=== PATIENT | female | born 1940 | race Caucasian/White ===

== ENCOUNTER 2017-08-02 06:03 | Day surgery (SDC) | payer OTHER ==
--- NOTE | 2017-07-26 11:34 | RAD REPORT ---
EXAM DESCRIPTION: RAD - Chest Pa And Lat (2 Views) - 07/26/2017 11:15 am CLINICAL HISTORY: Preop chest, pending rotator cuff surgery COMPARISON: None. TECHNIQUE: PA and lateral views of the chest were obtained. FINDINGS: The lungs are fibrotic as a baseline. Diaphragm is flattened. No failure, infiltrate or ma ss. Heart size is normal and central vasculature is within normal limits. No pneumothorax or pleur al effusion. There is scarring changes at the right lung base blunting the costophrenic angle. This i s a stable presentation. Trachea is midline. No acute bony finding noted. No aortic abnormality. IMPRESSION: Fibrotic an obstructive lung changes are present similar to prior imaging. No acute pro cess seen.
[2017-07-26 11:54] LABS: Absolute Lymphocytes (CBC) 1.1 K/uL (0.7-4.9); Absolute Monocytes 0.4 K/uL (0.1-1.3); Hematocrit 37.8 % (36.0-45.0); Lymphocytes % 14.2 % (15.3-44.8); MCH 26.6 pg (27.0-35.0); MPV 7.8 fL (7.6-11.3); Monocytes % 5.8 % (3.3-12.3); RBC Red Blood Cell Count 4.61 M/uL (3.86-4.86)
[2017-07-26 12:09] LABS: Protime INR 0.95
[2017-08-02] MEDS ORDERED: Ringers Lactate 1,000 ML IV ONE ×2 (06:09→08:37)
[2017-08-02] MEDS ORDERED: CEFAZOLIN/SWI 1gm 1 GM/10 ML SYR ONE (06:10)
[2017-08-02] MEDS ORDERED: FENTANYL CITR 100 MCG/2 ML ONE (06:49)
[2017-08-02] MEDS ORDERED: MIDAZOLAM HCL 2 MG/2 ML INJ ONE (06:50)
[2017-08-02] MEDS ORDERED: DEXAMETHASONE 4 MG/ML VIAL ONE (06:50)
[2017-08-02] MEDS ORDERED: ROPLVACAINE HCL 40 ML ONE (06:50)
[2017-08-02] MEDS ORDERED: NA CIT/CITRIC AC 30 ML ORAL UDC ONE (07:01)
[2017-08-02] MEDS ORDERED: EPINEPHRINE/PF 1 MG/ML AMP ONE (07:13)
[2017-08-02] MEDS ORDERED: LIDOCAINE 2% MPF 5 ML VIAL ONE (07:21)
[2017-08-02] MEDS ORDERED: PROPOFOL 200 MG/20 ML VIAL IV ONE (07:21)
[2017-08-02] MEDS ORDERED: ROCURONIUM 50 MG/5 ML VIAL IV ONE (07:21)
[2017-08-02] MEDS ORDERED: LANO/MINERAL OIL/PETRO 3.5 GM ONE (07:33)
[2017-08-02] MEDS ORDERED: EPHEDRINE SULF 50 MG/ML SYR ONE (07:49)
[2017-08-02] MEDS ORDERED: NS 0.9% VIAL 10 ML ONE ×2 (07:51→08:43)
[2017-08-02] MEDS ORDERED: Phenylephrine HCl 10 MG/ML 1 ML VIAL ONE (07:51)
[2017-08-02] MEDS ORDERED: ONDANSETRON HCL 40 MG/20 ML VIAL ONE (07:55)
[2017-08-02] MEDS ORDERED: DEXAMETHASONE 10 MG/ML VIAL ONE (07:55)
[2017-08-02] MEDS ORDERED: KETOROLAC 30 MG/ML INJ ONE (07:55)
[2017-08-02] MEDS ORDERED: GLYCOPYRROLATE 0.2 MG/ML SYR ONE (09:17)
[2017-08-02] MEDS ORDERED: NEOSTIGMINE 1 MG/ML -5 ML SYRINGE ONE (09:18)
--- NOTE | 2017-08-02 09:50 | P.BOP ---
Preoperative diagnosis: right rotator cuff tear, right bicipital tenosynovitis Postoperative diagnosis: same, right shoulder SLAP tear Primary procedure: right shoulder arthroscopic rotator cuff repair Secondary procedure: right shoulder arthroscopic biceps tenotomy with SLAP debridement Other procedure(s): right shoulder arthroscopic subacromial decompression Escort Patients: NONE,NONE Estimated blood loss: <10 cc Specimen: none Findings: see dictation Anesthesia: General Complications: None Implants: 2-4.75 mm Arthrex swivelock, 2- Fibertape Fluids & blood products: per anesthesia record Transferred to: Recovery Room Condition: Good
[2017-08-02] MEDS ORDERED: HYDROCODONE/APAP 7.5/325 MG TAB ONE (12:43)
[2017-08-02 15:17] VITALS: BP 112/51; TEMP 97.8; O2SAT 100
--- NOTE | 2017-08-04 09:26 | OP ---
Date of Procedure: 08/02/2017 Surgeon: Jaison Crawford MD Preoperative Diagnoses: 1. Right shoulder rotator cuff tear. 2. Right shoulder bicipital tenosynovitis. 3. Right shoulder SLAP tear. Postoperative Diagnoses: 1. Right shoulder rotator cuff tear. 2. Right shoulder bicipital tenosynovitis. 3. Right shoulder SLAP tear. 4. Right shoulder impingement syndrome. Procedures Performed: 1. Right shoulder arthroscopic rotator cuff repair. 2. Right shoulder arthroscopic biceps tenotomy with SLAP tear debridement. 3. Right shoulder arthroscopic subacromial decompression. Anesthesia: General endotracheal. Fluids: Per Anesthesia record. Estimated Blood Loss: Less than 10 cc. Implants: Two FiberTapes, two 4.7 mm Arthrex SwiveLock. Complications: None. Indication For Procedure: Ms. Ramires is a 77-year-old female, who presents to my clinic with physical exam and findings history as well as MRI findings consistent with a right shoulder anterior supraspinatus tear, superior subscapularis tear as well as bicipital tenosynovitis, and a subluxated biceps tendon. The patient failed conservative measures including steroid injection. I discussed with the patient at length risks and benefits associated with operative and nonoperative treatment. She expressed understanding and elected to proceed with operative treatment. Description Of Procedure: After informed consent was obtained, the patient was identified in the preop holding area. The right upper extremity was marked. The patient was taken back to the PACU and underwent an interscalene block to the right thigh performed by Anesthesia. She was taken back to the operating room, transferred to the operating table in supine fashion, placed under general endotracheal anesthesia. She was then placed into a well-padded beach chair position with her extremities well padded. The right upper extremity was examined. The patient had full range of motion of her right upper extremity. No instability of her right shoulder joint. The right upper extremity was then prepped and draped in usual sterile fashion. A time-out was initiated. Correct patient and procedure were confirmed and identified. The patient did receive preop prophylactic antibiotics via the posterior portal position. Spinal needle was introduced into the glenohumeral and shoulder was injected with 30 cc of normal saline to distend the capsule. A posterior portal was then created and the arthroscope was brought in from the posterior portal position. An anterior portal was also created and a cannula was placed. Diagnostic arthrotomy was performed. Once the scope was brought to the glenohumeral joint, it was noted that there was a significant fraying within the anterior shoulder joint, anterior aspect of the shoulder. The frayed tissue was coming from the biceps tendon near the anchor. An arthroscopic shaver was then used to debride the biceps tendon and it was noted to have subluxated anteriorly. A biceps tenotomy was performed using meniscal biters. It was also noted that the patient had a type 2 SLAP tear. An arthroscopic shaver was then used to debride the SLAP tear. There was no instability noted. There was overall no significant degenerative changes of the glenohumeral joint. There were no lose bodies within the axillary pouch. The anterior and posterior labrum were found to be stable. The arthroscope was then brought into the inferior aspect of the shoulder, and was noted to be in superior aspect of the subscapularis tendon. The lesser tuberosity was then debrided using an arthroscopic shaver and a bur to create a bleeding bony bed. An everted mattress was passed through the superior aspect of the subscapularis after making anterolateral portal and placing a cannula. Once the suture was passed, it was noted that there was overall good reduction of the subscapularis. Using the anterior portal, a 4.5 mm SwiveLock was passed after passing the suture through the anchor and there was good reduction of the subscapularis on the lesser tuberosity. The shoulder was then ranged both into internal rotation. There was overall good reduction of the subscapularis tendon on the lesser tuberosity. A lateral portal was then created and there was noted to be a full-thickness tear of the anterior aspect of the supraspinatus. An arthroscopic shaver was then brought in the lateral portal and the supraspinatus was then debrided as well as the greater tuberosity over the anterior supraspinatus footprint. A bleeding bony bed was created using an arthroscopic cortney. The arthroscope was then brought into the subacromial space and a subacromial bursectomy was performed. There was noted to be some fraying of the coracoacromial ligament and at that point subacromial decompression was performed using a radiofrequency ablator to clean off tissue of the undersurface of the acromion as well as an arthroscopic cortney to perform an acromioplasty. After this was performed, it was noted that there was a small crescent-shaped tear of the anterior aspect of the supraspinatus. An inverted mattress suture was placed using a scorpion suture passer and a FiberTape. Once the 2 suture limbs were passed through the supraspinatus tendon, it was reduced and fixed over the greater tuberosity. There was good overall reduction of the supraspinatus tendon. At that point, a single lateral anchor was placed using a 4.75 mm SwiveLock. There was good reduction of the supraspinatus on the greater tuberosity and the remaining sutures were cut. The instruments were then removed. The portals were irrigated with normal saline and reapproximated using a 2-0 Vicryl for subcutaneous tissue and 3-0 Monocryl for the portals superficially. Sterile dressings were applied. The patient was placed in a shoulder immobilizer, awakened, transferred to PACU in stable condition. Postoperative Plan: To follow the medium rotator cuff repair protocol. She will begin physical therapy at 3 weeks postoperatively and she will follow up in my clinic next week for wound check. PACO/[facility] Voice ID: [id number] Report ID: [id number] MARLENA
== END 2017-08-02 14:55 | disposition home or self-care (01) ==
LOC: OR 06:03
PROVIDERS: ATTEND Orthopaedic Surgery Sports Medicine
PROC: 0RNJ4ZZ Release Right Shoulder Joint, Percutaneous Endoscopic Approach (ICD-10-PCS; 2017-08-02)
PROC: 0RBJ4ZZ Excision of Right Shoulder Joint, Percutaneous Endoscopic Approach (ICD-10-PCS; 2017-08-02)
PROC: 0LQ14ZZ Repair Right Shoulder Tendon, Percutaneous Endoscopic Approach (ICD-10-PCS; principal; 2017-08-02 07:30)
DX: M75.101 Unspecified rotator cuff tear or rupture of right shoulder, not specified as traumatic (principal); S43.431A Superior glenoid labrum lesion of right shoulder, initial encounter; M75.21 Bicipital tendinitis, right shoulder; M25.811 Other specified joint disorders, right shoulder; I10 Essential (primary) hypertension; M19.90 Unspecified osteoarthritis, unspecified site; Z88.6 Allergy status to analgesic agent
CPT/HCPCS: 29822; 29826; 29827; 36415; 71046; 80048; 85025; 85610; 85730; J0171; J0690; J1100; J2250; J2370; J2405; J2710; J2795; J3010